=== PATIENT | female | born 1990 | race Caucasian/White ===

== ENCOUNTER 2020-08-10 10:28 | Emergency (ER) | payer BC, MEDICAID ==
[~2020-08-10] VITALS: Ht 162.6 cm; Wt 63.5 kg
[2020-08-10 10:28] VITALS: BP_SYST 110
--- NOTE | 2020-08-10 10:28 | NUR ---
BROUGHT BACK TO BED #7 AND TRIAGED. REPORT GIVEN TO MICKI
--- NOTE | 2020-08-10 10:35 | NUR ---
PT CAME INTO ER FROM HOME C/O VAGINAL BLEEDING AND IS 19 WEEKS . STATES WHEN SHE WOKE UP THIS AM SHE HAD SMALL AMOUNT OF LIGHT PINK SPOTTING WHICH HAS SINCE SUBSIDED. PT ALSO REPORTS LLQ ABD PAIN "FROM LIGAMENTS STRETCHING". . PT IS AMBULATORY, AAOX4, V/S STABLE
--- NOTE | 2020-08-10 10:45 | NUR ---
ER DR. MALHOTRA AT THE BEDSIDE EXAMINING PT
[2020-08-10 11:40] LABS: BASOPHILS % (AUTO) 0.2 % (0.0-2.0); EOSINOPHILS # (AUTO) 0.2 K/uL (0.0-0.4); EOSINOPHILS % (AUTO) 1.9 % (0.0-4.0); HEMATOCRIT 34.7 % (36-48); HEMOGLOBIN 12.3 g/dL (12.0-16.0); LYMPHOCYTES # (AUTO) 1.1 K/uL (1.0-5.5); MEAN CORPUSCULAR HEMOGLOBIN 30 pg (27-31); MEAN CORPUSCULAR HGB CONC 35 % (32-36); MEAN CORPUSCULAR VOLUME 84 fL (79.0-98.0); MONOCYTES # (AUTO) 0.4 K/uL (0.0-1.0); MONOCYTES % (AUTO) 4.5 % (1.7-9.3); NEUTROPHILS % (AUTO) 80.4 % (40.0-70.0); PLATELET COUNT (AUTO) 138 K/uL (130-430); RED BLOOD CELL COUNT(AUTO) 4.14 MIL/uL (4.2-6.2); RED CELL DISTRIBUTION WIDTH 12.9 % (9.0-15.0); WHITE BLOOD COUNT (AUTO) 8.7 K/uL (4.8-10.8)
[2020-08-10 13:04] VITALS: BP_SYST 110
--- NOTE | 2020-08-10 13:05 | NUR ---
Patient given written and verbal discharge instructions and verbalizes understanding. ER MD discussed with patient the results and treatment provided. Patient in stable condition. ID arm band removed. NO Rx given. Patient educated on pain management and to follow up with PMD. Pain Scale 0/10. Opportunity for questions provided and answered. Medication side effect fact sheet provided.
== END 2020-08-10 13:05 | disposition home or self-care (01) ==
LOC: SED 10:28
DX: O20.0 Threatened abortion (principal); Z3A.18 18 weeks gestation of pregnancy
CPT/HCPCS: 36415; 76805-TC; 84702; 85025; 86900; 86901; 99284